=== PATIENT | male | born 1970 | race Two or more races ===

== ENCOUNTER 2018-04-04 15:03 | Outpatient (CLI) | payer OTHER | END 2018-04-04 15:14 | disposition home or self-care (01) | LOC: RAD 15:03 | DX: J01.00 Acute maxillary sinusitis, unspecified (principal) ==

== ENCOUNTER 2018-04-18 10:32 | Outpatient (CLI) | payer OTHER | END 2018-04-18 15:38 | disposition home or self-care (01) | LOC: TOM 10:32 | DX: G44.89 Other headache syndrome (principal); R51 Headache ==

== ENCOUNTER 2018-09-06 14:17 | Outpatient (CLI) | payer OTHER ==
[~2018-09-06] VITALS: Ht 170.2 cm; Wt 95.3 kg
== END 2018-09-06 14:35 | disposition home or self-care (01) ==
LOC: OFIC 805 14:17
DX: J30.9 Allergic rhinitis, unspecified (principal); R09.81 Nasal congestion; H61.23 Impacted cerumen, bilateral; H90.3 Sensorineural hearing loss, bilateral

== ENCOUNTER → 2022-10-13 | Outpatient (CLI) | payer OTHER | END | disposition home or self-care (01) | LOC: RAD 12:19 | PROVIDERS: ATTEND Physical Medicine & Rehabilitation | DX: M54.2 Cervicalgia (principal); M25.511 Pain in right shoulder ==